=== PATIENT | male | born 1985 | race Caucasian/White ===

== ENCOUNTER 2016-11-11 13:09 | Emergency (ER) | payer MEDICAID ==
[~2016-11-11] VITALS: Ht 167.6 cm; Wt 77.1 kg
[2016-11-11 13:09] VITALS: BP 123/73
== END 2016-11-11 14:08 | disposition home or self-care (01) ==
LOC: ER 13:12
DX: S91.331A Puncture wound without foreign body, right foot, initial encounter (principal); Z23 Encounter for immunization; Z88.0 Allergy status to penicillin; W22.8XXA Striking against or struck by other objects, initial encounter; Y93.01 Activity, walking, marching and hiking; Y92.89 Other specified places as the place of occurrence of the external cause; Y99.8 Other external cause status
CPT/HCPCS: 90715; A4606; Z7610